=== PATIENT | male | born 1985 | race Caucasian/White ===

== ENCOUNTER → 2024-05-15 06:26 | Day surgery (SDC) | payer BC, SELFPAY | LOC: GI 06:26 | PROVIDERS: ATTENDING PHYSICIAN Student in an Organized Health Care Education/Training Program | DX: R12 Heartburn (principal); R14.0 Abdominal distension (gaseous); K44.9 Diaphragmatic hernia without obstruction or gangrene; K31.A0 Gastric intestinal metaplasia, unspecified; K20.80 Other esophagitis without bleeding | CPT/HCPCS: 43239; 88305; 88342 ==

== ENCOUNTER 2025-06-24 06:37 | Day surgery (SDC) | payer BC, SELFPAY | END 2025-06-24 11:48 | disposition home or self-care (01) | LOC: GI 06:37 | PROVIDERS: ATTENDING PHYSICIAN Student in an Organized Health Care Education/Training Program; FAMILY PHYSICIAN Family Medicine | DX: K29.50 Unspecified chronic gastritis without bleeding (principal); K29.70 Gastritis, unspecified, without bleeding; K20.90 Esophagitis, unspecified without bleeding; K21.9 Gastro-esophageal reflux disease without esophagitis; K44.9 Diaphragmatic hernia without obstruction or gangrene; K25.9 Gastric ulcer, unspecified as acute or chronic, without hemorrhage or perforation; Z87.19 Personal history of other diseases of the digestive system | CPT/HCPCS: 43239; 88305; 88341; 88342 ==

== ENCOUNTER → 2025-06-27 11:16 | Outpatient (REF) | payer BC, SELFPAY | LOC: HWRAD 11:16 | PROVIDERS: ATTENDING PHYSICIAN Student in an Organized Health Care Education/Training Program; FAMILY PHYSICIAN Family Medicine | DX: R09.81 Nasal congestion (principal); M54.9 Dorsalgia, unspecified | CPT/HCPCS: 71046; 72202 ==

== ENCOUNTER 2025-06-29 15:29 | Emergency (ER) | payer BC, SELFPAY ==
[2025-06-29 15:31] VITALS: BP 151/89
[2025-06-29 15:53] LABS: Hematocrit 42.0 % (39.0-52.0); Hemoglobin 15.1 g/dL (13.0-18.0); Mean Corp Hgb Conc. 36.0 g/dL (33.0-37.0); Mean Corpuscular Volume 85.0 fL (80.0-94.0); Nucleated Red Blood Cells % 0 % (-); Platelet Count 293 10^3/uL (130-400); Red Cell Dist. Width 11.7 % (11.5-14.5)
[2025-06-29 16:11] LABS: ALT (SGPT) 27 U/L (0-50); AST (SGOT) 26 U/L (17-59); Albumin 5.1 g/dl (3.5-5.0); Alkaline Phosphatase 79 U/L (38-126); Blood Urea Nitrogen 16 mg/dl (9-20); Calcium 10.0 mg/dl (8.4-10.2); Carbon Dioxide 26 mmol/L (22-30); Chloride 102 mmol/L (98-107); Glucose 92 mg/dl (70-99); Potassium 3.9 mmol/L (3.5-5.1); Sodium 139 mmol/L (135-145); Total Protein 8.1 g/dl (6.3-8.2); eGFR > 60.00
[2025-06-29 18:21] VITALS: BP 132/71; BMI 23.4
[2025-06-29 18:26] VITALS: BP 132/71
--- NOTE | 2025-06-29 19:51 | ED.GENMED ---
History of Present Illness
General
Chief Complaint: Rectal Bleeding
Source: patient
Time Seen by Provider: 06/29/25 18:37
History of Present Illness
History of Present Illness:
39-year-old male presents to the emergency room for evaluation of rectal bleeding. Patient noted bloody stool which began 2 days ago. Patient had an endoscopy performed on June 24. He had multiple biopsies taken at that time. Patient just
had a bowel movement few minutes ago and noted that the stool appeared normal. He denies any lightheadedness, abdominal pain. He does not take any oral anticoagulants. He is taking pantoprazole.
Phy Exam
Physical Exam
Physical Exam:
General: Awake, Alert, Oriented X3. No acute distress.
Vitals: unremarkable
Head: Atraumatic
Eyes: Pupils equal, EOMI
Throat: Airway intact, no exudates
Neck: Trachea midline
Lungs: Clear and equal b/l
Heart: Regular rate, no murmurs
Abd: Soft, Nontender, No pulsatile mass
Neuro: Nonfocal
Skin: Warm, dry, no rash
Extremities: pulses equal b/l, no edema
Course
Orders/Labs/Results
Orders:
Orders
06/29/25 15:46
Type+Screen Urgent
Complete Blood Count/With Diff Urgent
Comprehensive Metabolic Panel Urgent
Abnormal Lab Results
06/29/25
15:46
Albumin 5.1 H g/dl
(3.5-5.0)
06/29/25 15:46
06/29/25 15:46
Vital Signs
Initial and Last Documented VS:
Initial Vital Signs
Temp Pulse Resp BP Pulse Ox
98.3 F 87 18 151/89 98
06/29/25 15:31 06/29/25 15:31 06/29/25 15:31 06/29/25 15:31 06/29/25 15:31
Last Documented Vital Signs
Temp Pulse Resp BP Pulse Ox
98.3 F 79 18 123/80 99
06/29/25 15:31 06/29/25 20:10 06/29/25 20:10 06/29/25 20:10 06/29/25 20:10
MDM/Problems Addressed
Differential Diagnosis Includes:
Post biopsy blood in the GI tract, bleeding from biopsy site,
MDM/Problems Addressed:
Patient had what he describes as bloody stool earlier. Most recent stools normal. Labs are normal. Suspect he had some bleeding related to his recent endoscopy. Not anything brisk enough to require hospitalization. Recommend he contact
Janusz on Monday.
*Pulse Oximetry
SaO2: 99
Oxygen Mode of Delivery: Room air
Patient hypoxic: no
*Critical Care Note
Total Time (30-74mins, 75-104mins- exclusive of procedures): Not Applicable
ED Attending Note
-
Portions of this chart may have been created with voice recognition software.� Occasional wrong word or��sound alike� substitutions may have occurred due to the inherent limitations of voice recognition software.
Discharge Plan
Departure
Patient Disposition: Home (Routine Discharge)
Date of Disposition: 06/29/25
Time of Disposition: 19:56
Patient with high blood pressure during this ER visit?: No
Condition: Good
Discharge Problem:
Rectal bleed
Instructions: Gastrointestinal Bleeding (DC)
Referrals:
Lorenzo Juarez DO [Family Provider, Family Practice]
Nicho Boudreaux DO [Active, Gastroenterology]
Activity Restrictions/Additional Instructions:
I believe the blood you noticed in your stools related to your recent biopsy. Your labs are normal. There is no evidence for any significant GI bleeding. Follow-up with Dr. Boudreaux.
Interventions
Interventions:
*General Assessment Last Done: 06/29/25 18:22
*Neglect/Abuse Screening Last Done: 06/29/25 18:24
*ED COVID-19 Vaccine History Last Done: 06/29/25 18:22
*ED Influenza Vaccine History Last Done: 06/29/25 18:22
[facility] Fall Risk Assessment Tool Last Done: 06/29/25 18:41
*Risk Screen - Suicide (C-SSRS) Last Done: 06/29/25 18:22
*Nursing Disposition Last Done: 06/29/25 20:15
SW-Nhqcwc-Kbegruyrlh Assessment Last Done: 06/29/25 18:41
ED- Cardiac Assessment Last Done: 06/29/25 18:41
ED- Pulmonary Assessment Last Done: 06/29/25 18:41
Discharge Date and Time
Discharge Date/Time: 06/29/25 20:18
Print Language: ROMANSH
[2025-06-29 20:10] VITALS: BP 123/80
== END 2025-06-29 20:18 | disposition home or self-care (01) ==
LOC: EMR 15:29
PROVIDERS: Physician Assistant Medical; EMERGENCY PHYSICIAN Emergency Medicine; FAMILY PHYSICIAN Family Medicine
DX: K62.5 Hemorrhage of anus and rectum (principal); Z98.890 Other specified postprocedural states; Z88.8 Allergy status to other drugs, medicaments and biological substances; Z91.018 Allergy to other foods
CPT/HCPCS: 99283; 80053; 85025; 86850; 86900; 86901